=== PATIENT | male | born 1985 | race Two or more races ===

== ENCOUNTER 2025-07-01 15:02 | Emergency (ER) | payer MEDICAID ==
[~2025-07-01] VITALS: Ht 177.8 cm; Wt 83.5 kg
[2025-07-01 15:40] LABS: PLATELET COUNT (AUTO) 246 K/uL (150-450); RED BLOOD CELL COUNT(AUTO) 4.94 MIL/uL (4.5-6.0); RED CELL DISTRIBUTION WIDTH 13.2 % (11.5-15.0); WHITE BLOOD COUNT (AUTO) 9.5 K/uL (4.3-11.0)
[2025-07-01 15:47] LABS: CALCIUM, SERUM 9.5 mg/dL (8.5-10.1); CREATININE 1.1 mg/dL (0.6-1.3); SODIUM SERUM 141 mmol/L (136-145); UREA NITROGEN, BLOOD 12 mg/dL (7-18)
[2025-07-01 15:53] LABS: ALCOHOL, BLOOD < 3 mg/dL (0-10); ASPARTATE AMINOTRANSFERASE 16 U/L (15-37); TOTAL PROTEIN, SERUM 7.9 g/dL (6.4-8.2)
[2025-07-01 16:05] LABS: INR 1.03 (0.91-1.10)
[2025-07-01] MEDS: LEVETIRACETAM (500MG) 2,000 MG in IV NS 0.9% 80 ML IV STA (16:15)
[2025-07-01 17:13] LABS: AMPHETAMINE, URINE NEGATIVE (NEGATIVE); BARBITURATE, URINE NEGATIVE (NEGATIVE); BENZODIAZEPINE, URINE NEGATIVE (NEGATIVE); CANNABINOID, URINE NEGATIVE (NEGATIVE); COCCAINE, URINE NEGATIVE (NEGATIVE); OPIATE, URINE NEGATIVE (NEGATIVE)
[2025-07-01 18:00] VITALS: TEMP 98.4
[2025-07-01 21:38] VITALS: BP 128/92; O2SAT 96
== END 2025-07-01 23:40 | disposition short-term general hospital (02) ==
LOC: ER 15:19
DX: G40.909 Epilepsy, unspecified, not intractable, without status epilepticus (principal); R10.20 Pelvic and perineal pain unspecified side
CPT/HCPCS: 99291; 96365; 93005; 71045; 70450; 85025; 80048; 80076; 36415; 85730; 80320; 80307; J7030; A4223; J1953; G0480